=== PATIENT | female | born 1995 ===

== ENCOUNTER 2020-11-21 23:16 | Emergency (ER) | payer BC, OTHER ==
[2020-11-22] MEDS ORDERED: Lidocaine 2% Viscous Solution 15 ML Cup PO ONE (00:06)
--- NOTE | 2020-11-22 00:23 | EDM.PDOC ---
ED HPI GENERAL MEDICAL PROBLEM - General Chief Complaint: Upper Extremity Injury/Pain Stated Complaint: TOENAIL IS ABOUT TO FALL OFF. Time Seen by Provider: 11/21/20 23:59 Source of Information: Reports: Patient History Limitations: Reports: No Limitations - History of Present Illness INITIAL COMMENTS - FREE TEXT/NARRATIVE: Patient presented to the ED because of Rt great toe injury. Her horse stepped on her rt foot/toe, the nail of her Rt great toe was avulsed. Right Toe-Hailux Pain Score (Numeric/FACES): 10 - Related Data Allergies Allergy/AdvReac Type Severity Reaction Status Date / Time No Known Allergies Allergy Verified 11/21/20 23:57 Home Meds: Home Meds NK [No Known Home Meds] 11/21/20 [History] Review of Systems - Review of Systems Review Of Systems: See Below Constitutional: Reports: No Symptoms Eyes: Reports: No Symptoms Ears: Reports: No Symptoms Nose: Reports: No Symptoms Mouth/Throat: Reports: No Symptoms Respiratory: Reports: No Symptoms Cardiovascular: Reports: No Symptoms GI/Abdominal: Reports: No Symptoms Genitourinary: Reports: No Symptoms Musculoskeletal: Reports: Other (Rt great toe pain/bleeding) Skin: Reports: No Symptoms ED EXAM, GENERAL - Physical Exam Exam: See Below Exam Limited By: No Limitations General Appearance: Alert, No Apparent Distress Ears: Normal External Exam, Normal Canal, Hearing Grossly Normal Nose: Normal Inspection, Normal Mucosa, No Blood Throat/Mouth: Normal Inspection, Normal Lips, Normal Teeth Head: Atraumatic, Normocephalic Neck: Normal Inspection, Supple, Non-Tender, Full Range of Motion Respiratory/Chest: No Respiratory Distress, Lungs Clear, Normal Breath Sounds Cardiovascular: Normal Peripheral Pulses, Regular Rate, Rhythm, No Edema, No Gallop GI/Abdominal: Normal Bowel Sounds, Soft, Non-Tender, No Organomegaly Back Exam: Normal Inspection, Full Range of Motion Extremities: Normal Inspection, Normal Range of Motion, Non-Tender Neurological: Alert, Oriented, CN II-XII Intact Course - Vital Signs Text/Narrative:: Procedure: 2% Viscous Lidocaine, 15 ml was applied on the Rt great toe. The toe nal was then removed with a tissue forcep. patient tolerated the procedure well without any complication. Last Recorded V/S: Last Vital Signs Temp 37.3 C 11/21/20 23:57 Pulse 102 H 11/21/20 23:57 Resp 18 11/21/20 23:57 BP 133/83 11/21/20 23:57 Pulse Ox 100 11/21/20 23:57 - Orders/Labs/Meds Meds: Medications Discontinued Medications Generic Name Dose Route Start Last Admin Trade Name Pippa PRN Reason Stop Dose Admin Lidocaine HCl 15 ml 11/22/20 00:06 11/22/20 00:18 Lidocaine 2% Viscous Solution 15 Ml Cup PO 11/22/20 00:07 15 ml ONETIME ONE Administration Departure - Departure Time of Disposition: 00:45 Disposition: Home, Self-Care 01 Condition: Good Clinical Impression: Nail avulsion, toe - Discharge Information Instructions: Nail Avulsion Referrals: PCP,None [Primary Care Provider] - Forms: ED Department Discharge Additional Instructions: Please read discharge instructions on toe nail avulsion Take ibuprofen 800 mg with tylenol 1000 mg every 8 hours as needed for pain Follow up as needed Sepsis Event Note (ED) - Evaluation Sepsis Screening Result: No Definite Risk
--- NOTE | 2020-11-22 11:18 | CR ---
INDICATION: Right toe injury, horse stepped on right foot. RIGHT FOOT: Three-views of the right foot were obtained 11/21/20 - no comparisons. Evidence of injury is noted at the tip of the great toe with avulsion of the nail. However, an acute fracture, dislocation, or other significant bone or joint abnormality, was not identified. If symptoms persist - if occult fracture site is suspected clinically, re- examination in 10-14 days may be helpful. MTDD
== END 2020-11-22 00:50 | disposition home or self-care (01) ==
LOC: FB.ED 23:16
DX: S91.201A Unspecified open wound of right great toe with damage to nail, initial encounter (principal); W55.19XA Other contact with horse, initial encounter
CPT/HCPCS: 11730; 73630-RT; 99282; 99283; A9270-GY